=== PATIENT | male | born 1955 | race Caucasian/White ===

== ENCOUNTER 2021-10-31 16:13 | Inpatient (IN) ==
[2021-10-31] MEDS ORDERED: *HR* OxyCODONE Immed Rel 15 MG TABLET PO PRN (16:38)
[2021-10-31] MEDS ORDERED: Acetaminophen 325 MG TABLET PO PRN (16:40)
[2021-10-31] MEDS ORDERED: Ondansetron ODT 4 MG TAB.RAPDIS SL PRN (16:41)
[2021-10-31] MEDS ORDERED: Melatonin 3 MG TABLET PO PRN (16:43)
[2021-10-31 16:47] VITALS: RESP 16
[2021-10-31] MEDS: *HR* OxyCODONE Immed Rel 15 MG TABLET PO SCH (20:20)
[2021-10-31] MEDS: Artificial Tears SOLN 15 ML BOTTLE LEFT EYE SCH (20:21)
[2021-10-31] MEDS: Sennosides/Docusate Sodium TABLET PO SCH (20:21)
[2021-11-01] MEDS: *HR* OxyCODONE Immed Rel 15 MG TABLET PO SCH ×3 (00:15→09:12)
[2021-11-01] MEDS ORDERED: *HR* Enoxaparin 40 MG/0.4 ML SYRINGE SQ SCH (06:00)
[2021-11-01 07:11] LABS: Basophils % 0.3 %; Eosinophils # 0.2 K/mcL (0.0-0.6); Hematocrit 30.7 % (37.5-50.1); Hemoglobin 10.4 g/dL (12.9-16.9); Immature Granulocytes % 0.3 % (0-4); Lymphocytes # 0.6 K/mcL (0.6-4.6); Mean Corpuscular HGB Conc 33.9 g/dL (31.6-35.5); Mean Corpuscular Hemoglobin 29.1 pg (28.0-33.3); Mean Platelet Volume 8.1 fL (9.4-12.4); Monocytes # 0.6 K/mcL (0.0-1.3); Monocytes % 11.1 %; Neutrophils # 4.3 K/mcL (1.6-8.9); Platelet Count 243 K/mcL (140-400); Red Blood Count 3.57 M/mcL (4.19-5.50); Red Cell Distribution Width 11.8 % (11.5-14.5); Segmented Neutrophils % 74.3 %; White Blood Count 5.7 K/mcL (4.3-11.1)
[2021-11-01 07:23] LABS: Calcium 9.1 mg/dL (8.6-10.3); Potassium 4.2 mEq/L (3.5-5.1)
[2021-11-01 07:58] VITALS: BP 134/71; TEMP 98
[2021-11-01] MEDS ORDERED: UBIDECARENONE PO SCH (09:00)
[2021-11-01] MEDS ORDERED: Cyanocobalamin (B-12) 1,000 MCG TABLET PO SCH (09:00)
[2021-11-01] MEDS ORDERED: VIT E MIX PO SCH (09:00)
[2021-11-01] MEDS ORDERED: Cholecalciferol (D-3) 1,000 UNIT (25MCG) TABLET PO SCH (09:00)
[2021-11-01] MEDS ORDERED: VIT E PO SCH (09:00)
[2021-11-01] MEDS: Sennosides/Docusate Sodium TABLET PO SCH (09:12)
[2021-11-01] MEDS: Artificial Tears SOLN 15 ML BOTTLE LEFT EYE SCH (09:13)
[2021-11-01 12:41] VITALS: PULSE 79; O2SAT 93
== END 2021-11-01 11:53 | disposition left against medical advice (07) | DRG 552 ==
LOC: INPPIK 19:05
PROVIDERS: ADMIT Internal Medicine; ATTEND Internal Medicine